=== PATIENT | female | born 1935 | race African-American/Black ===

== ENCOUNTER 2019-05-01 22:41 | Emergency (ER) | payer MEDICARE, MEDICAID ==
[~2019-05-01] VITALS: Ht 165.1 cm; Wt 80.0 kg
[~2019-05-01 22:41] MED LIST: ACET12.53 PO; AMLO10TA80 PO; BIFI4CAP PO; CHOL100044 PO; CRAN425C2 PO; DOCU-150 PO; IPRA3AMP9 HHN; LEVVL SQ; LORA10TA7 PO; LOSA100T32 PO; MULT-1146 PO; OMEP20CA5 PO; SITA1TBM4 PO; TOPUD PO
[2019-05-01] MEDS ORDERED: ONDANSETRON HCL 4MG/2ML INJ IV STA (23:54)
[2019-05-01] MEDS ORDERED: MORPHINE SULFATE 4 MG/ML CPJ (NOT FOR IM USE) IV STA (23:54)
[2019-05-02] MEDS ORDERED: ASPIRIN 81MG TABLET PO ONE
[2019-05-02 00:34] LABS: BASOPHILS % 1.3 % (0.0-2.0); EOSINOPHILS % 2.3 % (0.0-5.0); HEMATOCRIT. 35.4 % (36.0-48.0); HEMOGLOBIN. 11.5 g/dL (12.0-16.0); LYMPHOCYTES % 27.9 % (20.0-50.0); MEAN CORPUSCULAR HEMOGLOBIN 28.7 pg (28.0-32.0); MEAN CORPUSCULAR VOLUME 87.9 fL (81.0-99.0); MEAN PLATELET VOLUME 8.5 fl (7.4-10.4); NEUTROPHILS % 61.5 % (40.0-76.0); PLATELET 343 x1000/uL (130-400); RED BLOOD CELL COUNT 4.02 mill/uL (4.2-5.4)
[2019-05-02 00:44] LABS: CHLORIDE 107 mEq/L (98-107)
[2019-05-02 02:04] LABS: CLARITY URINE TURBID (CLEAR); COLOR URINE YELLOW (YELLOW); KETONES URINE NEGATIVE (NEGATIVE); LEUKOCYTE ESTERASE URINE 3+ (NEGATIVE); NITRITE URINE POSITIVE (NEGATIVE); OCCULT BLOOD URINE 1+ (NEGATIVE); PROTEIN URINE 2+ (NEGATIVE); SPECIFIC GRAVITY URINE 1.022 (1.005-1.030)
[2019-05-02] MEDS ORDERED: CEPHALEXIN 250MG CAPSULE PO ONE (03:00)
[2019-05-02 04:32] VITALS: BP 163/73
== END 2019-05-02 04:38 | disposition home or self-care (01) ==
LOC: ER 22:41
DX: N39.0 Urinary tract infection, site not specified (principal); M54.9 Dorsalgia, unspecified; J44.9 Chronic obstructive pulmonary disease, unspecified; E11.9 Type 2 diabetes mellitus without complications; I10 Essential (primary) hypertension; I73.9 Peripheral vascular disease, unspecified; Z79.4 Long term (current) use of insulin; Z86.73 Personal history of transient ischemic attack (TIA), and cerebral infarction without residual deficits
CPT/HCPCS: 36415; 71045; 80053; 81003; 83880; 84484; 85025; 87077; 87086; 87186; 93005; 96374; 96375; 99284; J2270; J2405